=== PATIENT | female | born 1980 | race Caucasian/White ===

== ENCOUNTER 2016-07-26 10:35 | Emergency (ER) | payer OTHER | END 2016-07-26 11:39 | disposition home or self-care (01) | LOC: ER 10:35 | DX: M54.5 Low back pain (principal); G89.29 Other chronic pain; M79.7 Fibromyalgia; M79.605 Pain in left leg; R20.0 Anesthesia of skin; Z88.5 Allergy status to narcotic agent; Z79.899 Other long term (current) drug therapy | CPT/HCPCS: 96372; 99282-25 ==